=== PATIENT | male | born 1970 | race African-American/Black ===

== ENCOUNTER 2018-02-17 23:05 | Emergency (ER) | payer SELFPAY ==
[2018-02-17] MEDS ORDERED: Azithromycin 500 MG VIAL ONE (23:34)
[2018-02-17] MEDS ORDERED: Azithromycin 250 MG TAB ONE (23:35)
== END 2018-02-17 23:39 | disposition home or self-care (01) ==
LOC: NAV ERS 23:05
DX: J02.0 Streptococcal pharyngitis (principal); I10 Essential (primary) hypertension; Z79.899 Other long term (current) drug therapy
CPT/HCPCS: 99283; J0456

== ENCOUNTER 2020-05-16 14:52 | Emergency (ER) | payer OTHER, SELFPAY ==
[~2020-05-16 14:52] MED LIST: Iopamidol 370 76% 100 ML VIAL ONE
[2020-05-16 15:35] LABS: #Basophils 0.1 thou/uL (0.0-0.2); #Eosinphils 0.1 thou/uL (0.0-0.7); #Lymphocytes 1.8 thou/uL (1.20-3.40); #Monocytes 0.6 thou/uL (0.11-0.59); #Neutrophils 3.6 thou/uL (1.40-6.50); %Basophils 1.7 % (0.0-1.0); %Lymphocytes 29.7 % (21.0-51.0); %Monocytes 9.8 % (0.0-10.0); %Neutrophils 57.7 % (42.0-75.0); Hemoglobin 14.9 g/dL (14.0-18.0); Mean Corpuscular HGB CONC 29.6 g/dL (32.0-36.0); Mean Corpuscular Hemoglobin 28.1 pg (27.0-31.0); Mean Corpuscular Volume 94.7 fL (78.0-98.0); Platelet Count 184 thou/uL (130-400); RBC Distribution Width 12.8 % (11.5-14.5); Red Blood Cell (RBC) Count 5.31 mill/uL (4.70-6.10); White Blood Cell (WBC) Count 6.2 thou/uL (4.8-10.8)
[2020-05-16] MEDS ORDERED: Morphine 4 MG/ML VIAL ONE (15:48)
[2020-05-16] MEDS ORDERED: Ondansetron PF 4 MG/2 ML Vial ONE (15:48)
[2020-05-16] MEDS ORDERED: Sodium Chloride 0.9% 1,000 ML ONE (15:48)
[2020-05-16 15:57] LABS: ALT (SGPT) 26 U/L (8-55); AST (SGOT) 25 U/L (5-34); Albumin 4.5 g/dL (3.5-5.0); Alkaline Phosphatase 71 U/L (40-110); Anion Gap 14 mmol/L (10-20); BUN (Urea Nitrogen) 9 mg/dL (8.9-20.6); Bilirubin, Direct 0.2 mg/dL (0.1-0.3); Bilirubin, Total 0.4 mg/dL (0.2-1.2); CK (CPK) 152 U/L (30-200); CRP (Inflammatory) 1.36 mg/dL (= or < 0.5); Calc. Creatinine Clearance 0 mL/min (70-130); Calcium 9.2 mg/dL (7.8-10.44); Carbon Dioxide 25 mmol/L (22-29); Chloride 103 mmol/L (98-107); Estimated GFR-MDRD 79; Globulin 3.7 g/dL (2.4-3.5); Glucose 82 mg/dL (70-105); Lipase 17 U/L (8-78); Potassium 4.3 mmol/L (3.5-5.1); Protein, Total 8.2 g/dL (6.0-8.3); Sodium 138 mmol/L (136-145)
--- NOTE | 2020-05-16 16:51 | CT ---
CT Appendix Protocol History: Pain Comparison: None. Findings: Lung bases are clear. No pericardial effusion. The liver and spleen is normal. Mildly promi nent pancreatic duct although still measures 3 mm, upper limits of normal. Gallbladder is normal. No hydronephrosis. Aortic contour is normal. There are small volume free fluid in the pelvis. The appendix is visualized and is normal. There is a mild inflammatory stranding along the right paracolic gutter at the ascending colon center showing also involves portion of the cecum. The iliopsoas muscles are intact. Likely artifactual curvilinear hyperdensity along the undersurface of the umbilicus axial image 51. Small peripheral hypodensity hepatic segment 2 likely a cyst. Impression: 1. Normal appendix. 2. Moderate volume free fluid in the dependent portion of pelvis as well as right posterior paracolic gutter inflammatory stranding adjacent to minimally thickened ascending colon and cecum can be sequelae of colitis. 3. No free intraperitoneal gas. 4. No hydronephrosis or obstructive calculus.
[2020-05-16] MEDS ORDERED: Cipro 250 MG TAB ONE (17:26)
[2020-05-16] MEDS ORDERED: HYDROcodone/Acetaminophen 5/325 mg Tablet ONE (17:26)
[2020-05-16] MEDS ORDERED: metroNIDAZOLE 500 MG TAB ONE (17:26)
== END 2020-05-16 17:36 | disposition home or self-care (01) ==
LOC: NAV ERS 14:52
DX: K52.9 Noninfective gastroenteritis and colitis, unspecified (principal); I10 Essential (primary) hypertension; Z79.891 Long term (current) use of opiate analgesic
CPT/HCPCS: 74177; 80053; 82150; 82248; 83690; 84484; 85025; 86140; 96361; 96374; 96375; J2270; J2405; J7050; Q9967

== ENCOUNTER 2021-01-16 18:08 | Emergency (ER) | payer OTHER ==
[2021-01-16 18:43] LABS: #Eosinphils 0.1 thou/uL (0.0-0.7); #Lymphocytes 1.9 thou/uL (1.20-3.40); #Monocytes 0.4 thou/uL (0.11-0.59); #Neutrophils 1.6 thou/uL (1.40-6.50); %Basophils 1.2 % (0.0-1.0); %Eosinophils 2.3 % (0.0-10.0); %Lymphocytes 47.7 % (21.0-51.0); %Monocytes 9.2 % (0.0-10.0); %Neutrophils 39.6 % (42.0-75.0); Hemoglobin 15.4 g/dL (14.0-18.0); Mean Corpuscular HGB CONC 28.9 g/dL (32.0-36.0); Mean Corpuscular Hemoglobin 27.7 pg (27.0-31.0); Mean Corpuscular Volume 95.9 fL (78.0-98.0); Platelet Count 204 thou/uL (130-400); RBC Distribution Width 13.1 % (11.5-14.5); Red Blood Cell (RBC) Count 5.55 mill/uL (4.70-6.10); White Blood Cell (WBC) Count 4.1 thou/uL (4.8-10.8)
[2021-01-16 19:01] LABS: ALT (SGPT) 31 U/L (8-55); AST (SGOT) 27 U/L (5-34); Albumin 4.5 g/dL (3.5-5.0); Alkaline Phosphatase 67 U/L (40-110); Anion Gap 19 mmol/L (10-20); BUN (Urea Nitrogen) 15 mg/dL (8.9-20.6); Bilirubin, Total 0.4 mg/dL (0.2-1.2); CK (CPK) 172 U/L (30-200); Calc. Creatinine Clearance 0 mL/min (70-130); Calcium 10.2 mg/dL (7.8-10.44); Carbon Dioxide 23 mmol/L (22-29); Chloride 105 mmol/L (98-107); Globulin 4.5 g/dL (2.4-3.5); Glucose 96 mg/dL (70-105); Lipase 28 U/L (8-78); Potassium 4.2 mmol/L (3.5-5.1); Sodium 143 mmol/L (136-145)
[2021-01-16 19:14] LABS: Platelet Morphology Comment Appears Adequate; RBC Morphology Normal
== END 2021-01-16 20:35 | disposition home or self-care (01) ==
LOC: NAV ERS 18:08
DX: E86.0 Dehydration (principal); R55 Syncope and collapse; I10 Essential (primary) hypertension
CPT/HCPCS: 36415; 70450; 71045; 80053; 82550; 83690; 84484; 85025; 93005

== ENCOUNTER 2025-06-06 13:22 | Emergency (ER) | payer OTHER, SELFPAY ==
[2025-06-06] MEDS ORDERED: Aspirin 325 MG TAB ONE (13:48)
[2025-06-06 13:51] LABS: #Basophils 0.1 thou/uL (0.0-0.2); #Eosinophils 0.0 thou/uL (0.0-0.7); #Lymphocytes 1.4 thou/uL (1.20-3.40); #Monocytes 0.3 thou/uL (0.11-0.59); #Neutrophils 1.4 thou/uL (1.40-6.50); %Basophils 2.0 % (0.0-1.0); %Eosinophils 0.8 % (0.0-10.0); %Lymphocytes 44.9 % (21.0-51.0); %Monocytes 9.4 % (0.0-10.0); %Neutrophils 43.0 % (42.0-75.0); Hematocrit 42.0 % (42.0-52.0); Hemoglobin 13.6 g/dL (14.0-18.0); Mean Corpuscular Hemoglobin 27.9 pg (27.0-31.0); Mean Corpuscular Volume 86.5 fl (78.0-98.0); Platelet Count 224 10x3/uL (130-400); Red Blood Cell (RBC) Count 4.86 mill/uL (4.70-6.10); White Blood Cell (WBC) Count 3.2 10x3/uL (4.8-10.8)
[2025-06-06 14:05] LABS: ALT (SGPT) 18 U/L (Less than 45); AST (SGOT) 31 U/L (11-34); Albumin 4.2 g/dL (3.1-4.5); Alkaline Phosphatase 64 U/L (40-110); Anion Gap 14 mmol/L (10-20); BUN (Urea Nitrogen) 12 mg/dL (8.4-25.7); Bilirubin, Total 0.3 mg/dL (0.3-1.2); Calc. Creatinine Clearance 0 mL/min (70-130); Calcium 9.1 mg/dL (7.8-10.44); Carbon Dioxide 25 mmol/L (22-29); Chloride 106 mmol/L (98-107); Globulin 3.7 g/dL (2.4-3.5); Glucose 127 mg/dL (70-105); Potassium 3.8 mmol/L (3.5-5.1); Sodium 141 mmol/L (136-145)
[2025-06-06 14:11] LABS: Troponin I Less than 0.010 ng/mL (< 0.028)
[2025-06-06 17:39] LABS: Troponin I Less than 0.010 ng/mL (< 0.028)
== END 2025-06-06 18:00 | disposition home or self-care (01) ==
LOC: NAV ERS 13:22
DX: R07.89 Other chest pain (principal); I10 Essential (primary) hypertension; D64.9 Anemia, unspecified; D72.819 Decreased white blood cell count, unspecified
CPT/HCPCS: 71045; 80053; 84484; 85025; 93005